=== PATIENT | male | born 1965 | race Caucasian/White ===

== ENCOUNTER 2019-09-23 09:48 | Emergency (ER) | payer OTHER, SELFPAY ==
[2019-09-23 10:05] VITALS: BP 126/68; PULSE 79; RESP 16; TEMP 36.3; O2SAT 97
--- NOTE | 2019-09-23 10:23 | ED.WOUNDLAC ---
HPI - Wound/Laceration General Chief Complaint: Wound/Laceration Stated Complaint: Laceration/left thumb History of Present Illness HPI narrative: This is a 54-year-old male comes in because he cut his finger on the blade of a lawnmower on her left thumb Related Data Home Medications Medication Instructions Recorded Confirmed cholecalciferol (vitamin D3) 50 2,000 unit PO DAILY 06/13/19 mcg (2,000 unit) tablet magnesium 250 mg tablet 250 mg PO BID tablet 06/13/19 Aspir-81 09/23/19 Vitamin C 09/23/19 gabapentin 09/23/19 Allergies Allergy/AdvReac Type Severity Reaction Status Date / Time Penicillins Allergy Unknown Unknown Verified 05/04/19 06:55 Sulfa (Sulfonamide Allergy Unknown Verified 02/27/19 13:22 Antibiotics) sulfanilamide Allergy Unknown Verified 10/06/10 16:09 Review of Systems Review of Systems: Narrative: CONSTITUTIONAL: Denies fever, chills, or sweats. EYES: Denies visual changes, redness, or discharge. ENT: Denies rhinorrhea, congestion, sore throat, or otalgia. CARDIOVASCULAR:Denies chest pain, palpitations, or edema. RESPIRATORY: Denies cough or dyspnea. GASTROINTESTINAL: Denies abdominal pain, nausea, vomiting, or diarrhea. GENITOURINARY: Denies dysuria or hematuria. SKIN:[Denies rash or itching. laceration of the left thumb MUSCULOSKELETAL:Denies back pain, joint pain, or myalgia. NEUROLOGIC: Denies headache, numbness, or weakness. PSYCHIATRIC:Denies anxiety or depression PMFSH Social History Social History Smoking status: Former smoker Smoking end date: 07/05/06 Alcohol intake: current Comments At time as signature, I have reviewed and agree with nursing past medical, social, surgical and family history. Please see nursing chart for further information. There is no relevant family history pertinent to the presenting complaint. Exam Narrative: Exam Narrative: GENERAL:Well-appearing, well-nourished, and in no acute distress. HEAD:Normocephalic, atraumatic. EYES: PERRLA and EOMI. ENT: Nares clear, no rhinorrhea or epistaxis. Mucous membranes moist. NECK: Supple. CHEST: Clear to auscultation. No respiratory distress. HEART: Regular rate and rhythm. No murmur heard. Normal peripheral pulses. ABDOMEN: Soft, nontender, nondistended, normal active bowel sounds. EXTREMITIES: Normal range of motion. No edema. Laceration of the left thumb SKIN: Warm, dry, no rash. NEURO: No focal deficits. Alert and oriented x3. Course Vital Signs Vital signs: Vital Signs Temperature 97.4 F L 09/23/19 10:05 Pulse Rate 79 09/23/19 10:05 Respiratory Rate 16 09/23/19 10:05 Blood Pressure 126/68 09/23/19 10:05 Pulse Oximetry 97 09/23/19 10:05 Temperature 97.4 F L 09/23/19 10:05 Pulse Rate 79 09/23/19 10:05 Respiratory Rate 16 09/23/19 10:05 Blood Pressure 126/68 09/23/19 10:05 Pulse Oximetry 97 09/23/19 10:05 Procedures Laceration Laceration 1: Date: 09/23/19 Time: 11:06 Site: hand Side (If applicable): left Size (cm): 6 Description: flap and irregular Depth: simple, single layer Local Anesthetic: lidocaine 1% Amount of anesthesia used (mL): 2 Pre-repair: wound explored and irrigated (250 ml) ====== Skin Level ====== Skin layer closed with: dermabond Size (cm): 5-0 (Ethion) Number of sutures: 7 Technique: simple, interrupted and running ====== Subcutaneous Layer ====== Size: 5-0 (7) ====== Muscle Layer ====== ====== Tendon Layer ====== Dressing: Patient tolerated well good circulation noted. Patient able to move thumb no further bleeding noted MDM - Wound/Laceration Differential Diagnosis Differential diagnosis: Likely laceration, abrasion and avulsion of skin Discharge Plan Discharge Clinical Impression: Laceration Laceration of thumb Qualifiers:
== END 2019-09-23 12:08 | disposition home or self-care (01) ==
PROVIDERS: Emergency Provider Nurse Practitioner Family; PCP Emergency Medicine
DX: S61.012A Laceration without foreign body of left thumb without damage to nail, initial encounter (principal); W28.XXXA Contact with powered lawn mower, initial encounter
CPT/HCPCS: 12002; 99213; G0463

== ENCOUNTER → 2020-10-08 16:21 | Outpatient (CLI) | payer OTHER, SELFPAY ==
--- NOTE | ~2020-10-08 | XR_ITS ---
EXAMINATION: XR foot LT 2V INDICATION: Left foot pain TECHNIQUE: Two views of the left foot are obtained. COMPARISON: None available FINDINGS: There is no fracture, dislocation, or subluxation. There is mild osteoarthritis at the firs t metatarsophalangeal joint and in multiple interphalangeal joints. The soft tissues are unremarkable . IMPRESSION: 1. No acute osseous abnormality. Reviewed, dictated and finalized at location A.
--- NOTE | ~2020-10-08 | XR_ITS ---
EXAMINATION: XR foot RT 2V INDICATION: Right foot pain TECHNIQUE: Two views of the right foot are obtained. COMPARISON: None available FINDINGS: There is no fracture, dislocation, or subluxation. There is mild osteoarthritis at the firs t metatarsophalangeal joint and in multiple interphalangeal joints. The soft tissues are unremarkable . IMPRESSION: 1. No acute osseous abnormality. Reviewed, dictated and finalized at location A.
== END ==
PROVIDERS: PCP Emergency Medicine; Visit Provider Emergency Medicine
DX: G57.53 Tarsal tunnel syndrome, bilateral lower limbs (principal); M79.671 Pain in right foot; M79.672 Pain in left foot
CPT/HCPCS: 73620

== ENCOUNTER 2020-12-03 15:37 | Outpatient (CLI) | payer OTHER, SELFPAY ==
--- NOTE | 2020-12-03 15:55 | ECG_ITS ---
Measurements Intervals [place] Rate: 86 P: 50 ND: 160 QRS: -4 QRSD: 93 T: 26 QT: 342 QTc: 410 Interpretive Statements SINUS RHYTHM BASELINE ARTIFACT- II, III, AVF NORMAL ECG Electronically Signed On 12-03-2020 19:16:56 CDT by Julio Fairchild D.O.
== END 2020-12-03 15:38 | disposition home or self-care (01) ==
LOC: ANHCARD 15:39
PROVIDERS: PCP Emergency Medicine; Visit Provider Podiatrist Foot & Ankle Surgery
DX: R03.0 Elevated blood-pressure reading, without diagnosis of hypertension (principal)
CPT/HCPCS: 93005

== ENCOUNTER 2021-12-25 08:03 | Emergency (ER) | payer OTHER, SELFPAY ==
[2021-12-25 08:10] VITALS: BP 147/85; PULSE 87; RESP 16; TEMP 37; O2SAT 98
--- NOTE | 2021-12-25 08:11 | ED.URI ---
HPI - URI/Sore Throat General Chief Complaint: Upper Respiratory Infection Stated Complaint: cough Time Seen by Provider: 12/25/21 08:15 Source: patient and RN notes reviewed Mode of arrival: ambulatory Limitations: no limitations History of Present Illness HPI Narrative: 56-year-old male presented for complaint of lingering cough for over 10 days with associated sinus congestion and nasal drainage. He denies shortness of breath, wheezing, nausea, vomiting, fevers or chills. He is having [id number] Delsym without. He is not vaccinated for COVID or flu. He denies sick contacts. MD elicited complaint: cough Related Data Home Medications Medication Instructions Recorded Confirmed magnesium 250 mg tablet 250 mg PO BID 06/13/19 Vitamin C 09/23/19 Allergies Allergy/AdvReac Type Severity Reaction Status Date / Time Penicillins Allergy Unknown Unknown Verified 12/10/21 15:23 Sulfa (Sulfonamide Allergy Unknown Unknown Verified 12/10/21 15:23 Antibiotics) sulfanilamide Allergy Unknown unknown Verified 12/10/21 15:23 Review of Systems Review of Systems: CONSTITUTIONAL: Denies malaise, chills, sweats, fever EYES: Denies visual changes, redness, or discharge ENT: Reports rhinorrhea, congestion CARDIOVASCULAR: Denies chest pain, palpitations, edema RESPIRATORY: Reports cough, post nasal drainage. Denies dyspnea GASTROINTESTINAL: Denies abdominal pain, nausea, vomiting, diarrhea SKIN: Denies rash or itching PMFSH Past Medical History Medical History Cellulitis Family History Family History Father Hypertension Malignant neoplasm of prostate Sibling Hypertension Carcinoma of colon Family history of elevated blood lipids Mother Carcinoma of colon Other Family history of coronary artery disease Social History Social History Smoking status: Former smoker Smoking end date: 07/05/06 Alcohol intake: current Exam Narrative: GENERAL: Well-appearing EYES: conjunctivae clear ENT: Mucous membranes moist. TM pearly sarah with normal light reflex bilaterally; no tragal tenderness. Oropharynx erythematous without lesions or exudate NECK: Supple. No lymphadenopathy CHEST: Clear to auscultation, breath sounds equal. No wheezing, rhonchi, rales, or stridor. HEART: Regular rate and rhythm. No murmur heard. SKIN: Warm, dry, no rash. Course Course Emergency Course: Patient is aware of diagnosis, understands and agrees to treatment plan. Anticipatory guidance given. Patient agrees to follow-up as directed and is aware of reasons to seek care at the emergency department. Portions of this record may have been created with voice recognition software Level of Care: Express Care Visit Vital Signs Vital signs: Vital Signs Temperature 98.6 F 12/25/21 08:10 Pulse Rate 87 12/25/21 08:10 Respiratory Rate 16 12/25/21 08:10 Blood Pressure 147/85 H 12/25/21 08:10 Pulse Oximetry 98 12/25/21 08:10 Oxygen Delivery Room Air 12/25/21 08:10 Temperature 98.6 F 12/25/21 08:10 Pulse Rate 87 12/25/21 08:10 Respiratory Rate 16 12/25/21 08:10 Blood Pressure 147/85 H 12/25/21 08:10 Pulse Oximetry 98 12/25/21 08:10 Oxygen Delivery Room Air 12/25/21 08:10 reviewed MDM - URI/Sore Throat MDM Narrative Medical decision making narrative: Advised supportive treatments for URI, given sx present for 10 days, he will have Rx abx. Pt is in stable condition and appropriate for outpt treatment. Differential Diagnosis Differential diagnosis: Likely upper respiratory infection, sinusitis and viral infection Discharge Plan Discharge Clinical Impression: Upper respiratory infection Patient Disposition: Home, Self-Care Condition: Stable Instructions: Antibiotic Form, Upper Respiratory Infection (ED)
== END 2021-12-25 08:27 | disposition home or self-care (01) ==
PROVIDERS: Emergency Provider Nurse Practitioner Family; PCP Emergency Medicine
DX: J06.9 Acute upper respiratory infection, unspecified (principal); Z87.891 Personal history of nicotine dependence
CPT/HCPCS: 99213; G0463

== ENCOUNTER 2022-10-03 08:06 | Outpatient (CLI) | payer BC, SELFPAY ==
--- NOTE | ~2022-10-03 | CT_ITS ---
EXAMINATION: CT sinus wo con DATE: 10/03/2022 08:45 INDICATION: Nasal obstruction. Frontal headache. TECHNIQUE: Computed tomography (CT) of the facial bones and maxillofacial region was performed withou t intravenous contrast. Automated exposure control and iterative reconstruction technique were employ ed. The dose-length product was 308.46 mGy-cm. COMPARISON: None. FINDINGS: There is mild mucosal thickening in the bilateral frontal, ethmoid, sphenoid, and maxillary sinuses. There is leftward deviation of the nasal septum. There is alexander bullosa involving right mi ddle turbinate. There are bilateral Cynthia cells. The osteomeatal units are patent. IMPRESSION: 1. Mild mucosal thickening in the paranasal sinuses. 2. Leftward deviation of the nasal septum. 3. Alexander bullosa involving the right middle turbinate. 4. Bilateral Cynthia cells. Reviewed, dictated and finalized at location A.
== END 2022-10-03 08:07 | disposition home or self-care (01) ==
PROVIDERS: PCP Emergency Medicine; Visit Provider Otolaryngology
DX: J01.01 Acute recurrent maxillary sinusitis (principal); J34.2 Deviated nasal septum; J34.3 Hypertrophy of nasal turbinates
CPT/HCPCS: 70486

== ENCOUNTER 2022-11-12 19:08 | Emergency (ER) | payer BC, SELFPAY ==
[2022-11-12 19:15] VITALS: BP 159/75; PULSE 75; RESP 18; TEMP 37.6; O2SAT 99
--- NOTE | 2022-11-12 19:36 | ED.EYEPROB ---
HPI - Eye Problem General Chief complaint: Eye Problems Stated complaint: something in eye Time Seen by Provider: 11/12/22 19:24 Source: patient, RN notes reviewed and old records reviewed Mode of arrival: ambulatory Limitations: no limitations History of Present Illness HPI Narrative: 57-year-old male presents to the [facility] with complaints of left eye pain since 01/01 this morning. States he felt like something flew into his eye. Has had pain, tearing is since. Denies any change in vision or blurry vision. Denies any loss of vision. No hyphema. Onset (ago): hour(s) (13) Related Data Patient tetanus UTD: No Allergies Allergy/AdvReac Type Severity Reaction Status Date / Time Penicillins Allergy Intermediate Rash Verified 11/12/22 19:20 Sulfa (Sulfonamide Allergy Intermediate Rash Verified 11/12/22 19:20 Antibiotics) sulfanilamide Allergy Intermediate Rash Verified 11/12/22 19:20 Review of Systems Review of Systems: All systems reviewed & are unremarkable except as noted in HPI and below Constitutional: Constitutional: Reports no additional constitutional complaints Eyes: Eyes: Reports as per HPI, Denies change in vision, Reports irritation and Reports eye pain ENT: Reports system reviewed and no additional complaints, except as documented Cardiovascular: Cardiovascular: Reports no additional cardiovascular complaints, Denies chest pain and Denies dyspnea Respiratory: Respiratory: Reports no additional respiratory complaints, Denies chest congestion, Denies cough and Denies dyspnea Gastrointestinal: Gastrointestinal: Reports no additional gastrointestinal complaints, Denies abdominal pain, Denies nausea and Denies vomiting Musculoskeletal: Musculoskeletal: Reports no additional musculoskeletal complaints Integumentary/Breasts: Skin/Breast: Reports system reviewed and no additional complaints, except as docu Neurologic: Reports system reviewed and no additional complaints, except as documented Psychiatric: Psychiatric: Reports no additional psychiatric complaints Allergic/Immunologic: Allergic/Immunologic: Reports no additional allergic/immunologic complaints PMFSH Past Medical History Medical History Cellulitis Family History Family History Father Hypertension Malignant neoplasm of prostate Sibling Hypertension Carcinoma of colon Family history of elevated blood lipids Mother Carcinoma of colon Other Family history of coronary artery disease Social History Social History Smoking status: Former smoker Smoking end date: 07/05/06 Alcohol intake: current Substance use: never Lack of Transportation: No Lack of Food: Never True Current Housing: I Have Housing Concerned About Future Housing: No Difficulty Paying Gas/Electric Bills: No Difficulty Paying for Meds: No Currently Unemployed: No Education: Trade/Vocational Certificate Difficulty w/ Childcare or Family Care: No Comments At the time of my signature, I reviewed and agree with the nursing past medical, surgical, social, and family history. There is no relevant family history pertinent to the patient complaint. Exam Const: General: cooperative, healthy appearing, comfortable, no acute distress, well developed, alert and well nourished Nutritional Appearance: well nourished Orientation/consciousness: patient oriented x3 Limitations: no limitations HENMT: Head: normal to inspection Ears: hearing grossly normal bilaterally and external ears normal Face/Nose/Sinus: Normal external nose present, Normal nares present, Normal nasal mucous membranes and turbinates present and normal facial exam Face and sinus: normal facial exam Mouth: Yes Normal oral and palatal mucosa present, Yes lip normal and Yes moist mucous membranes Throat: posterior orophary
[2022-11-12] MEDS: TETANUS,DIPHTHERIA,AC PERTUSSIS ADULT (0.5 ML) BOOSTRIX IM (19:41)
== END 2022-11-12 19:51 | disposition home or self-care (01) ==
PROVIDERS: Emergency Provider Nurse Practitioner
DX: S05.02XA Injury of conjunctiva and corneal abrasion without foreign body, left eye, initial encounter (principal); X58.XXXA Exposure to other specified factors, initial encounter; Z23 Encounter for immunization; Z87.891 Personal history of nicotine dependence
CPT/HCPCS: 90471; 90715; 99213; A9270; G0463

== ENCOUNTER 2022-12-22 09:01 | Outpatient (CLI) | payer BC, SELFPAY ==
--- NOTE | 2022-12-22 09:58 | EST_ITS ---
Patient Info Name: Real Milligan Age: 57 years : 1965 Gender: Male Ht: 67 in Wt: 160 lbs BSA: 1.86 m2 HR: 66 bpm BP: 129 / 80 mmHg Heart Rhythm: Sinus Rhythm Exam Date: 12/22/2022 10:22 AM Exam Location: [facility] Stress Patient Status: Outpatient Admit Date: 12/22/2022 Staff Ordering Physician: Julio Fairchild DO Attending Provider: Julio Fairchild DO Exercise Technologist: Marcia Ling CT Exercise Physician: Julio Fairchild DO Exam Type: CA stress test treadmill Study Info Indications I47.9 - Paroxysmal tachycardia, unspecified A treadmill exercise stress test was performed. Summary 1. 1. Negative Doroteo exercise stress test for ischemic ST changes by ECG criteria. 2. 2. Good functional capacity, achieving 10 METs of workload. 3. 3. Appropriate HR response to exercise. 4. 4. Appropriate HR recovery at 1 minute post exercise. 5. 5. No imaging with stress testing. 6. 6. Patient informed of the above results. Protocol: Dor[place]o Stress ECG Details Stage: REST Duration (min): 0 min : 18 sec Speed (mph): 0.0 Grade (%): 0 HR (bpm): 68 SBP (mmHg): --- DBP (mmHg): --- METS: --- Stage: REST Duration (min): 1 min : 30 sec Speed (mph): 0.0 Grade (%): 0 HR (bpm): 67 SBP (mmHg): --- DBP (mmHg): --- METS: --- Stage: REST Duration (min): 6 min : 59 sec Speed (mph): 0.0 Grade (%): 0 HR (bpm): 70 SBP (mmHg): --- DBP (mmHg): --- METS: --- Stage: STAGE 1 Duration (min): 1 min : 0 sec Speed (mph): 1.7 Grade (%): 10 HR (bpm): 87 SBP (mmHg): --- DBP (mmHg): --- METS: --- Stage: STAGE 1 Duration (min): 2 min : 0 sec Speed (mph): 1.7 Grade (%): 10 HR (bpm): 93 SBP (mmHg): --- DBP (mmHg): --- METS: --- Stage: STAGE 1 Duration (min): 3 min : 0 sec Speed (mph): 1.7 Grade (%): 10 HR (bpm): 94 SBP (mmHg): 136 DBP (mmHg): 70 METS: --- Stage: STAGE 2 Duration (min): 1 min : 0 sec Speed (mph): 2.5 Grade (%): 12 HR (bpm): 102 SBP (mmHg): 136 DBP (mmHg): 70 METS: --- Stage: STAGE 2 Duration (min): 2 min : 0 sec Speed (mph): 2.5 Grade (%): 12 HR (bpm): 109 SBP (mmHg): 134 DBP (mmHg): 70 METS: --- Stage: STAGE 2 Duration (min): 3 min : 0 sec Speed (mph): 2.5 Grade (%): 12 HR (bpm): 111 SBP (mmHg): 134 DBP (mmHg): 70 METS: --- Stage: STAGE 3 Duration (min): 1 min : 0 sec Speed (mph): 3.4 Grade (%): 14 HR (bpm): 120 SBP (mmHg): 149 DBP (mmHg): 71 METS: --- Stage: STAGE 3 Duration (min): 2 min : 0 sec Speed (mph): 3.4 Grade (%): 14 HR (bpm): 124 SBP (mmHg): 149 DBP (mmHg): 71 METS: --- Stage: STAGE 3 Duration (min): 3 min : 0 sec Speed (mph): 3.4 Grade (%): 14 HR (bpm): 131 SBP (mmHg): 165 DBP (mmHg): 75 METS: --- Stage: STAGE 4 Duration (min): 0 min : 29 sec Speed (mph): 4.2 Grade (%): 16 HR (bpm): 138 SBP (mmHg): 165 DBP (mmHg): 75
== END 2022-12-22 09:02 | disposition home or self-care (01) ==
LOC: ANHCARD 09:02
PROVIDERS: PCP Emergency Medicine; Visit Provider Internal Medicine Cardiovascular Disease
DX: I48.0 Paroxysmal atrial fibrillation (principal)
CPT/HCPCS: 93017

== ENCOUNTER 2023-01-08 01:51 | Day surgery (SDC) | payer BC, SELFPAY ==
[2022-12-29 15:30] VITALS: BMI 25.1
--- NOTE | 2022-12-29 15:31 | SUR.PREOP ---
Report to the Outpatient Waiting Room, entrance under the green pavilion located off [facility], at time _1030 on date __01/08/23 . Planned Procedure Time: __1230 . Time changes happen often and if your time is changed the preop area will call you the afternoon before. - You and your visitor will be asked to self-screen and do not enter if you have any COVID symptoms. - A mask is optional within the hospital at this time. Patients may have clear liquids (water, carbonated beverages, clear teas, apple juice) until 3 hours prior to surgery with a maximum of 20 ounces. - No food from midnight until time of surgery - Infants may have breast milk until 4 hours before surgery, formula 6 hours prior to surgery. - Children will be allowed to drink immediately following surgery. If applicable, please bring a bottle or sippy cup to assist with drinking. Juice, water, soda, and popsicles are readily available. For infants on formula, please bring formula the day of surgery. Pacifiers are allowed. Take the following medications with a SIP of water the morning of surgery: DO NOT STOP ANY OF YOUR OTHER PRESCRIPTION MEDICATIONS PRIOR TO SURGERY ?EXCEPT THE FOLLOWING Medications to discontinue per physician MULTIVITAMIN PT TO CALL DR WALKER REGARDING __STOPPING ASPIRIN Date to take last dose___01/05/23 Please no make-up, nail lithuanian, hairspray, perfume, deodorant, or body powder the day of surgery. No jewelry (including any body piercings) or valuables the day of surgery, leave them at home. Please take a shower or bath the night before, or the morning of, surgery with an antibacterial soap. Wear comfortable, loose fitting clothing. Children are encouraged to wear pajamas. - Jewelry must be removed prior to entering the operating room. Rings and piercings that are not removed may be cut off. - The hospital will not accept responsibility for valuables. - Please leave all valuables, including medications, at home the day of surgery. If you are going home after surgery, a licensed otr refrigerated cdl truck driver must drive you home. - NO public transportation without another adult if you receive anesthesia. - We recommend that an adult stay with you for 24 hours following discharge. - We also recommend that you do not drive, make important decision, drink alcoholic beverages, or take any drugs that were not prescribed by your health care provider for at least 24 hours after your discharge time. For Pediatric surgeries, we recommend two adults accompany the child home. Follow any additional instructions given to you from your surgeon. If you or anyone in your household have experienced Covid symptoms in the past week, please notify your surgeon or the nurse liaison at the phone number below for possible testing. Telephone instructions given to _PAUL BOX and asked if any additional questions and then verbalized understanding. Patient advised to call surgeon office or pre surgery nurse liaison [phone] if any additional questions.
--- NOTE | 2023-01-07 12:48 | WPDANESEPPF ---
Anes - Initial Pre Proc Eval Procedure: Operation Date: 01/08/23 12:30 Proposed Procedures p Image Guided Bilateral Inferior Turbinectomy with Outfracture, Bilateral Total Ethmoidectomy, Bilateral Sphenoidotomy without Tissue Removal, Bilateral Maxillary Antrostomy without Tissue Removal, Bilateral Resection of Veda Bullosa - Yaya Reese MD s Endoscopic Septoplasty - Yaya Reese MD Date/Time: 01/07/23 12:48 Surgeon: Yaya Reese MD Pre Op Diagnosis: Chr Sinusitis Patient Data Age: 57 Gender: M Height: 1.7 m Weight: 72.72 kg Allergies Allergy/AdvReac Type Severity Reaction Status Date / Time Penicillins Allergy Intermediate Rash Verified 01/08/23 10:42 Sulfa (Sulfonamide Allergy Intermediate Rash Verified 01/08/23 10:42 Antibiotics) sulfanilamide Allergy Intermediate Rash Verified 01/08/23 10:42 Home Medications Medication Instructions Recorded Confirmed Type fenofibrate nanocrystallized 48 mg See Rx Instructions .Route 08/04/22 01/08/23 Rx tablet .COMPLEX #90 tabs fluticasone propionate 50 2 spray intranasal DAILY #18 mL 09/01/22 01/08/23 Rx mcg/actuation nasal spray,suspension (Flonase Allergy Relief) simvastatin 10 mg tablet See Rx Instructions .Route 12/01/22 01/08/23 Rx .COMPLEX #90 tabs testosterone 1 % (50 mg/5 gram) 1 packet transdermal DAILY #150 12/22/22 01/08/23 Rx transdermal gel packet (AndroGel) grams multivitamin 1 cap PO DAILY 12/29/22 01/08/23 History ECG: Date of Service: 12/03/20 Procedure(s): CA 12 lead EKG Accession Number(s): [id number] cc: ~ ? Measurements Intervals? [place]? Rate: ? 86 ? P:? 50 IA: ? 160? QRS:? -4 QRSD: ? 93 ? T:? 26 QT: ? 342? QTc:? 410? Interpretive Statements SINUS RHYTHM BASELINE ARTIFACT- II, III, AVF NORMAL ECG Electronically Signed On 12-03-2020 19:16:56 CDT by Julio Fairchild D.O. Patient hx anesthesia problems: none Family hx anesthesia problems: none Results Review: All pre-operative results and documents have been reviewed as part of the pre-operative evaluation. [facility] Past Medical History Medical History (Updated 01/07/23 @ 17:49 by Yyaa Reese MD) Cellulitis HLD (hyperlipidemia) Nasal turbinate hypertrophy JOSE L (obstructive sleep apnea) PAF (paroxysmal atrial fibrillation) Family History Family History Father Hypertension Malignant neoplasm of prostate Sibling Hypertension Carcinoma of colon Family history of elevated blood lipids Mother Carcinoma of colon Other Family history of coronary artery disease Social History Social History Smoking status: Former smoker Smoking end date: 08/06/05 Additional smoking assessment comments: 1 pack a week x12 years Alcohol intake: current Drinks per week: 3 Alcohol use details: socially Substance use: never Lack of Transportation: No Lack of Food: Never True Current Housing: I Have Housing Concerned About Future Housing: No Difficulty Paying Gas/Electric Bills: No Difficulty Paying for Meds: No Currently Unemployed: No Education: Trade/Vocational Certificate Difficulty w/ Childcare or Family Care: No Living arrangements: with family Spiritual care concerns: No Anes - Eval Final PreProcedure Day of Procedure 01/07/23 12:48 Patient weight: normal Heart: regular rate and rhythm Lungs: clear to auscultation and normal air movement Airway: Mallampati scale class II Neurological: alert and oriented Last oral intake: >/= 8 hours ASA classification: III Emergent: no Anesthetic plan: proceed Anesthesia type and monitori
--- NOTE | 2023-01-07 17:48 | PM.IMHP ---
H&P: HPI History of Present Illness Date/Time: 01/07/23 17:48 Chief Complaint: Alexander bullosa nasal obstruction nasal congestion septal deviation turbinate hypertrophy chronic sinusitis Narrative: planned procedure Review of Systems Review of Systems: All systems reviewed & are unremarkable except as noted in HPI and below PMFSH Past Medical History Medical History (Updated 01/07/23 @ 17:49 by Yaya Reese MD) Cellulitis HLD (hyperlipidemia) Nasal turbinate hypertrophy JOSE L (obstructive sleep apnea) PAF (paroxysmal atrial fibrillation) Family History Family History Father Hypertension Malignant neoplasm of prostate Sibling Hypertension Carcinoma of colon Family history of elevated blood lipids Mother Carcinoma of colon Other Family history of coronary artery disease Social History Social History Smoking status: Former smoker Smoking end date: 08/06/05 Additional smoking assessment comments: 1 pack a week x12 years Alcohol intake: current Drinks per week: 3 Alcohol use details: socially Substance use: never Lack of Transportation: No Lack of Food: Never True Current Housing: I Have Housing Concerned About Future Housing: No Difficulty Paying Gas/Electric Bills: No Difficulty Paying for Meds: No Currently Unemployed: No Education: Trade/Vocational Certificate Difficulty w/ Childcare or Family Care: No Living arrangements: with family Spiritual care concerns: No Meds Home Medications and Allergies Home Medications Medication Instructions Recorded Confirmed Type fenofibrate nanocrystallized 48 mg See Rx Instructions .Route 08/04/22 12/31/22 Rx tablet .COMPLEX #90 tabs fluticasone propionate 50 2 spray intranasal DAILY #18 mL 09/01/22 12/31/22 Rx mcg/actuation nasal spray,suspension (Flonase Allergy Relief) simvastatin 10 mg tablet See Rx Instructions .Route 12/01/22 12/31/22 Rx .COMPLEX #90 tabs testosterone 1 % (50 mg/5 gram) 1 packet transdermal DAILY #150 12/22/22 12/31/22 Rx transdermal gel packet (AndroGel) grams multivitamin 1 cap PO DAILY 12/29/22 12/31/22 History Allergies Allergy/AdvReac Type Severity Reaction Status Date / Time Penicillins Allergy Intermediate Rash Verified 12/31/22 15:40 Sulfa (Sulfonamide Allergy Intermediate Rash Verified 12/31/22 15:40 Antibiotics) sulfanilamide Allergy Intermediate Rash Verified 12/31/22 15:40 Exam Narrative: septal deviation turbinate hypertrophy Assessment and Plan Assessment and plan (1) Nasal turbinate hypertrophy: Code(s): J34.3 - Hypertrophy of nasal turbinates Status: Acute Assessment and Plan: plan OR endoscopic resection alexander bullosa bilaterally endoscopic assisted septoplasty inferior turbinate reduction bilaterally with outfracture bilateral image guided endoscopic maxillary antrostomies total ethmoidectomies sphenoidotomies. Risks were discussed including bleeding infection damage to surrounding structures need for further procedures failure to resolve symptoms septal perforation re hypertrophy of turbinates. CSF leak brain brain damage blindness change in vision need for time off work time off school and her risk of mycotic use persistent debridements postoperative infection need for multiple postoperative visits. Damage to any structure above the clavicle by myself damage to any structure during the induction and maintenance of anesthesia. (2) Nasal obstruction: Code(s): J34.89 - Other specified disorders of nose and nasal sinuses Status: Acute (3) Nasal turbinate hypertrophy: Code(s): J34.3 - Hypertrophy of nasal turbinates Status: Acute (4) Nasal septal deviation: Code(s): J34.2 - Deviated nasal septum Status: Acute (5) Alexander bullosa: Code(s): J34.8
[2023-01-08] VITALS (8 sets, daily range): BP systolic 133–183; BP diastolic 72–97; PULSE 80–97; RESP 12–18; TEMP 36.4; O2SAT 91–97
--- NOTE | 2023-01-08 07:36 | WPDHPUPDATE1 ---
History and Physical Update Update Date/Time: 01/08/23 07:36 History and Physical has been reviewed, including an updated exam of the patient. There are NO changes in the patient's condition. Risks, benefits, and alternatives have been discussed and questions answered. Patient agrees to proceed with procedure.
--- NOTE | 2023-01-08 10:31 | SUR.PREOP ---
pt informed delay in procedure
[2023-01-08] MEDS: ACETAMINOPHEN 500 MG TABLET 1000 MG PO (10:49)
[2023-01-08] MEDS: LACTATED RINGERS 1,000 ML 30 ML IV CONT ×2 (11:12→15:44)
[2023-01-08] MEDS: ceFAZolin 2 GM/D5W 50 ML 2 GM/50 ML BAG IVPB (12:58)
[2023-01-08] MEDS: OXYMETAZOLINE HCL 0.05% NAS 15 ML BTL (*BKC) 1 SPRAY NASAL (13:37)
[2023-01-08] MEDS: MUPIROCIN 2% OINT 22 GM TUBE 1 APPLIC EACH NARE (15:18)
[2023-01-08] MEDS: LIDO 1%/EPINEPHRINE 1:100,000 50 ML VIAL 20 ML INFILTRATE (15:19)
[2023-01-08] MEDS: fentaNYL CITRATE INJ (*CRX) 100 MCG/2 ML VIAL 25 MCG IV PUSH ×2 (15:54→16:01)
--- NOTE | 2023-01-08 16:29 | W.PM.PROC2 ---
Procedure Note - Detailed Date of Procedure 01/08/23 Pre-op Diagnosis Chr SinusitisFull deviation, turbinate hypertrophy, alexander bullosa Post-op Diagnosis Same Procedure Performed left middle turbinectomy right resection alexander bullosa endoscopic assisted septoplasty inferior turbinate reduction with outfracture bilaterally bilateral image guided endoscopic maxillary antrostomies total ethmoidectomies sphenoidotomies Surgeon Yaya Reese MD Anesthesia General Indications see above Findings minimally diseased mucosa in all the aforementioned sinuses left alexander bullosa completely full of purulence turbinate looked nonviable decision made to perform middle turbinectomy right large alexander resected nicely left septal deviation corrected no perforation excellent closure turbinates well reduced much more patent airway Description of Procedure patient identified consent verified in the preoperative holding area. Patient brought to the operating room. Time-out performed. General anesthesia induced endotracheal tube secured. Patient prepped reposition 2nd time-out performed after confirmation of procedure. Image guidance initiated confirmed. Afrin-soaked pledgets placed in the nasal passages for 5 minutes then removed. 11 cc 1% lidocaine with 1 100,000 parts epinephrine injected the bilateral nasal septum anterior portion of the inferior turbinates and right and left alexander bullosa. Harley incision made left-sided 15 blade left nasal septal flap elevated with 7 Ethiopian suction. Osteotome utilized to cross to the septum and outline the removed portion. Right-sided nasal septal flap elevated with 7 Ethiopian suction. Deviated septum move combination Samir forceps Renan Green forceps and osteotome. Harley incision closed with 3 interrupted 5 0 fast gut sutures. Turbinates reduced in the submucosal plane with microdebrider with turbinate blade. They were then outfractured Throckmorton elevator. Maxillary antrostomies performed bilaterally with image guidance double ball tip probe backbiter straight through cup microdebrider image guided microdebrider. Ethmoidectomies performed with Kerrison image guidance microdebrider sphenoidotomies performed with image guidance sphenoid punch and Kerrison. Blood loss was minimal throughout the procedure. Left alexander resected turbinate looked nonviable completely full of purulence turbinectomy performed with straight through cut stump cauterized with Bovie suction electrocautery setting of 15. Right alexander resected with sickle blade a straight through cut microdebrider. Blood loss 0-5 cc. Patient tolerated the procedure well the end of procedure the bilateral nasal passages were copiously irrigated with warm sterile saline. Nail no pack was placed bilaterally Vela splints placed sutured anteriorly with 3-0 mattressed nylon suture. I performed all dictated portions of the procedure. Total blood loss about 75 cc. No complications. Patient was taken to PACU. Estimated Blood Loss 75 Drains No Packing Yes ( Nova pack) Pathology None sent Complications No immediate complications Condition Stable Disposition PACU [facility] Billing Surgery - Charge Forward: Surgery Billing
[2023-01-08] MEDS: oxyCODONE HCL (*CRX) 5 MG TAB IR PO (16:49)
== END 2023-01-08 17:21 | disposition home or self-care (01) ==
PROVIDERS: PCP Emergency Medicine; Visit Provider Otolaryngology
PROC: (CPT 31256; principal; 2023-01-08 12:30)
PROC: (CPT 30520; 2023-01-08 12:30)
DX: J32.9 Chronic sinusitis, unspecified (principal); J34.2 Deviated nasal septum; J34.3 Hypertrophy of nasal turbinates; J34.89 Other specified disorders of nose and nasal sinuses; G47.33 Obstructive sleep apnea (adult) (pediatric); E78.5 Hyperlipidemia, unspecified; I48.0 Paroxysmal atrial fibrillation; Z87.891 Personal history of nicotine dependence
CPT/HCPCS: 31256; 31257; 61782; 30520; 30140; 31240; A9270; J0330; J0690; J1100; J2405; J2704; J3010; J7120

== ENCOUNTER 2023-07-07 15:52 | Outpatient (CLI) | payer BC, SELFPAY ==
--- NOTE | ~2023-07-07 | XR_ITS ---
EXAMINATION: XR hand RT 2V DATE: 07/07/2023 16:23 INDICATION: Right hand pain. TECHNIQUE: 2 views of right hand were obtained. COMPARISON: None. FINDINGS: Bone alignment is normal. No fracture. There is moderate osteoarthritis of first carpometac arpal joint and second metacarpophalangeal joint and mild osteoarthritis of third metacarpophalangeal joint and many of the interphalangeal joints. IMPRESSION: 1. Polyarticular osteoarthritis. Reviewed, dictated and finalized at location E. ARD/[employer]
--- NOTE | ~2023-07-07 | XR_ITS ---
EXAMINATION: XR lumbar spine 2-3V DATE: 07/07/2023 16:22 INDICATION: Low back pain. TECHNIQUE: 3 views of lumbar spine were obtained. COMPARISON: None. FINDINGS: Bone alignment is normal. Vertebral body heights and intervertebral disc heights are normal . There are endplate osteophytes at all levels. There is multilevel facet joint osteoarthritis, sever e in lower lumbar spine. IMPRESSION: 1. Mild lumbar spondylosis. Reviewed, dictated and finalized at location E. GER HEMATOLOGY IMPRESSION: 1. Mild lumbar spondylosis.
== END 2023-07-07 15:53 | disposition home or self-care (01) ==
LOC: ANHIMG 15:55
PROVIDERS: PCP Emergency Medicine; Visit Provider Emergency Medicine
DX: M43.06 Spondylolysis, lumbar region (principal); M19.041 Primary osteoarthritis, right hand
CPT/HCPCS: 72100; 73120

== ENCOUNTER 2023-11-23 15:38 | Outpatient (CLI) | payer BC, SELFPAY ==
--- NOTE | ~2023-11-23 | MR_ITS ---
EXAMINATION: MR thoracic spine wo con DATE: 11/23/2023 17:22 INDICATION: Vertebrogenic thoracic and low back pain. TECHNIQUE: Magnetic resonance imaging (MRI) of the thoracic spine was performed without intravenous c ontrast. Sagittal localizer T1-weighted FSE of the cervicothoracic spine was obtained. Thoracic spine sequences included sagittal T2-weighted FSE, sagittal T1-weighted SE, Sagittal T2-weighted FS FSE, a nd axial T2-weighted FSE. COMPARISON: None FINDINGS: Thoracic spine: Sagittal alignment is normal.12 degree upper cervical levoscoliosis and a discrete compensatory mid t o lower thoracic dextrocurvature. Vertebral body heights are normal. Normal marrow signal.Moderate di sc height loss at T5-T6 and mild disc height loss at the remaining levels between T1-T2 and T9-T10 mo re prominent along the concave side of the respective upper and midthoracic curvatures. The disc does not extend beyond the endplate margins with no central canal stenosis.Mild lower cervical spondylosi s with small disc bulges at C5-C6 and C6-C7. There is multilevel mild to moderate facet osteoarthriti s throughout the thoracic spine which results in mild neural from stenosis at a few levels on the lef t and right sides of the mid to lower thoracic spine. There is dilated T2 hyperintense cystic space c entrally within the thoracic spinal cord extends approximately 10 cm craniocaudally from the level of T7-T11 T12 and which measures up to maximal of 2.1 x 1.8 mm in maximal diameter at the level of T10- T11. On the sagittal images there appears be an additional similar but smaller diameter central fluid collection in the cervicothoracic cord extending from C7 to T2. There is otherwise normal spinal cor d signal. The conus terminates at L1. Lumbar spine: Alignment is normal. Vertebral body heights are normal. Minimal disc height loss at L3-L4. Remaining discs are normal. Paravertebral soft tissues are unremarkable. The following disc levels are specific ally discussed: T12-L1: The disc does not extend beyond the endplate margin. There is mild bilateral facet joint oste oarthritis. There is no neural foraminal stenosis. There is no central canal stenosis. L1-L2: The disc does not extend beyond the endplate margin. There is mild left and moderate right fac et joint osteoarthritis. There is no neural foraminal stenosis. There is no central canal stenosis. L2-L3: Minimal left foraminal zone disc protrusion. There is moderate right and mild to moderate left facet joint osteoarthritis. There is minimal bilateral neural foraminal stenosis. There is no centra l canal stenosis. L3-L4: Mild left paracentral disc protrusion. There is moderate right and mild to moderate left facet joint osteoarthritis. There is mild bilateral neural foraminal stenosis. There is negligible central canal stenosis. L4-L5: Mild bilateral foraminal zone disc protrusions. There is mild to moderate left and moderate to severe right facet joint osteoarthritis. There is mild bilateral neural foraminal stenosis. There is no central canal stenosis. L5-S1: Mild left foraminal zone disc protrusion. There is moderate to severe bilateral facet joint os teoarthritis. There is no neural foraminal stenosis. There is no central canal stenosis. IMPRESSION: 1. Mild to moderate thoracic and mild lumbar spondylosis. 2. 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 Consider pre and postcontrast MRI of th e entire spine to assess for otherwise occult neoplasm. Reviewed, dictated and finalized at zaria Banks
== END 2023-11-23 15:39 | disposition home or self-care (01) ==
PROVIDERS: PCP Emergency Medicine; Visit Provider Nurse Practitioner Family
DX: M43.04 Spondylolysis, thoracic region (principal); M43.06 Spondylolysis, lumbar region; G57.73 Causalgia of bilateral lower limbs
CPT/HCPCS: 72146; 72148

== ENCOUNTER 2023-12-19 08:29 | Outpatient (CLI) | payer BC, SELFPAY ==
--- NOTE | ~2023-12-19 | MR_ITS ---
Procedure: MR lumbar spine wo/w con Ordering provider: Belinda Couch, BREAST BUFFER History:58 years Male with . SYRINGEOMYELLA . Comparison: None. Technique: MRI lumbar spine with and without contrast. Contrast was given. FINDINGS: CONUS MEDULLARIS: Normal in position and appearance with no abnormal enhancement. Syringomyelia seen opposite T10 and T11. The conus ends at the level of T12-L1. LUMBAR VERTEBRAL BODIES: Normal height a nd alignment. no compression fracture. Normal marrow signal. No abnormal marrow enhancement. DISK SPACES: Normal. T12-L1: No stenosis. L1-L2: No stenosis. L2-L3: No stenosis. Small cystic areas seen in the right intervertebral foramen at the level of L2-L 3. L3-L4: No stenosis. L4-L5: No stenosis. L5-S1: No stenosis. PARASPINOUS SOFT TISSUES: Normal. No abnormal paraspinous enhancement. IMPRESSION: 1. Small right foraminal perineural cyst at the level of L2-L3. 2. Syringomyelia at the level of T10 and T11. Reviewed, dictated and finalized at location A.
--- NOTE | ~2023-12-19 | MR_ITS ---
Procedure: MR thoracic spine wo/w con Ordering provider: Belinda Couch, WELT STITCH CLEANER History: . SYRINGEOMYELLA . Comparison: November 23, 2023 Technique: MRI thoracic spine with and without contrast. FINDINGS: SPINAL CORD: Syringomyelia is seen in the thoracic cord extending into the mid and lower thoracic are a from T5 to T11 maximum changes seen in T10 and T11. No abnormal enhancement of the spinal cord or s antony canal. VERTEBRAL BODIES: Normal height and alignment. No compression fracture. Normal marrow signal. No abno rmal marrow enhancement. Hemangioma is seen in T9. DISK SPACES: Normal. STENOSIS: None. PARASPINOUS SOFT TISSUES: Normal. No abnormal enhancement of the paraspinous soft tissues. Nonenhancing lesion seen. IMPRESSION: Syringomyelia involving the mid and lower thoracic area. No compression fracture or significant stenosis of the thoracic spine. No abnormal enhancement. No significant change from previous examination Reviewed, dictated and finalized at location A. IMPRESSION: Syringomyelia involving the mid and lower thoracic area. No compression fracture or significant stenosis of the thoracic spine. No abno rmal enhancement. No significant change from previous examination
--- NOTE | ~2023-12-19 | MR_ITS ---
MR cervical spine wo/w con Ordering provider: Belinda Couch, FUSING MACHINE TENDER History: . SYRINGEOMYELLA . Comparison: None. Technique: MRI cervical spine with and without contrast enhancement. Contrast was given. FINDINGS: CERVICAL SPINAL CORD/CRANIAL CERVICAL JUNCTION: Normal in signal and caliber. No abnormal enhancement . No evidence of syringomyelia noted. Small T2 hyperintense signal area seen opposite C6-C7 which may b e artifactual are focal myelomalacia. CERVICAL VERTEBRAL BODIES: Normal height and alignment. Normal marrow signal. No abnormal marrow enha ncement. DISK SPACES: Well maintained. C2-C3: No stenosis. Diffuse Disc bulge. C3-C4: No stenosis. Central disc protrusion. C4-C5: No stenosis. Diffuse disc bulge. C5-C6: No stenosis. Diffuse disc bulge. Slight narrowing of the left foramen. C6-C7: No stenosis. C7-T1: No stenosis. VISUALIZED PARASPINOUS SOFT TISSUES: Normal. No abnormal enhancement. IMPRESSION: 1. Multilevel degenerative disc bulge with central protrusion at the level of C3-C4. Slight narrowin g of the left intervertebral foramen at the level of C5-C6. 2. No syringomyelia. Small focus of increased intensity on T2-weighted images seen in the sagittal i mages which may be artifactual or focal myelomalacia. 3. No enhancing lesions seen in the cord or the spine. Reviewed, dictated and finalized at location A. IMPRESSION: 1. Multilevel degenerative disc bulge with central protrusion at the level of C3-C4. Slight narrowing of the left intervertebral foramen at the level of C5-C 6. 2. No syringomyelia. Small focus of increased intensity on T2-weighted images seen in the sagittal images which may be artifactual or focal myelomalacia. 3. No enhancing lesions seen in the cord or the spine.
== END 2023-12-19 08:30 | disposition home or self-care (01) ==
LOC: ANHIMG 08:29
PROVIDERS: PCP Emergency Medicine; Visit Provider Nurse Practitioner Family
DX: G95.0 Syringomyelia and syringobulbia (principal); G96.191 Perineural cyst; M50.21 Other cervical disc displacement, high cervical region
CPT/HCPCS: 72156; 72157; 72158; A9577

== ENCOUNTER 2024-05-03 07:58 | Outpatient (CLI) | payer BC, SELFPAY ==
--- NOTE | 2024-05-24 11:42 | WPDSLEEPSTUD ---
Sleep Study Date of Study: 05/03/24 Ordering Provider: Mike Cox APRN Interpreting Physician: Malinda Umana MD Sleep Study Type: Polysomnogram Height: 1.7 m Weight: 74.843 kg Body Mass Index: 25.8 Neck Circumference (inches): 15 [place]: 15 Reason for Sleep Study Hypersomnolence, non restorative sleep * 10/15/2022 HSAT using [employer], AHI was 4.09, desaturation 86%, oxygen desaturation index 7.7, high heart rate variability suggestive of obstructive sleep apnea Sleep History Real Milligan is a 58-year-old man with excessive daytime sleepiness and poor quality sleep. His medical comorbidities include hypertension, paroxysmal atrial fibrillation, recurrent sinusitis and rhinitis. He is tired all the time.. He occasionally awakens from sleep feeling short of breath. He occasionally wakes at night with heartburn, belching or coughing.??He occasionally snores, occasionally snores loudly enough that others complain. He frequently has trouble sleeping when he has a cold. He occasionally wakes up gasping for breath during the night. He occasionally has breathing problems at night. He rarely sweats excessively at night. He rarely notices his heart pounding or beating irregularly during the night. He frequently falls asleep during the day. He rarely falls asleep involuntarily, never falls asleep while driving. He never experiences loss of muscle tone with strong emotion. He occasionally has daytime difficulty at work due to excessive sleepiness. He never feels paralyzed on waking or falling asleep. He occasionally experiences vivid dreams upon waking or falling asleep. He never feels afraid of going to sleep. He occasionally has nightmares. He occasionally recalls his dreams. He frequently has thoughts racing through his mind. He never feels sad or depressed. He rarely feels anxiety. He rarely notices parts of his body jerk. He never kicks during the night. He occasionally feels crawling or aching feelings in his legs. He frequently feels leg pain at night. He never has morning jaw pain, rarely grinds his teeth at night. He frequently feels bothered by pain during the day, frequently awakened by pain during the night. He [place] wakes up feeling stiff in the morning, and he frequently wakes feeling sore or achy. He frequently awakens with pain in his neck, spine, or joints. Normal bedtime is 8:00 p.m., falling asleep relatively quickly, waking between 4 and 6 times at night, tossing and turning. Wake time is between 4:30 a.m. and 5:00 a.m.. On weekends, bedtime is later, between 9:30 p.m. and 10:00 p.m., wake time is between 5:30 a.m. and 6:00 a.m.. He typically gets between 4 and 5 hours of sleep per night. He takes naps in the afternoon or evening, however a short nap lasting 10-15 minutes is not refreshing. He is usually drowsy for quite a while after waking. Habits:??Tobacco: Former smoker, quit 18 years ago Caffeine: 2 drinks 12 oz per week Alcohol:2-4 per week Recreational substances: none PMFSH Past Medical History Medical History Acute recurrent maxillary sinusitis Cellulitis Chronic sinusitis Veda bullosa Excessive cerumen in right ear canal Foot pain, bilateral HLD (hyperlipidemia) Hypertension, essential Nasal crusting Nasal turbinate hypertrophy JOSE L (obstructive sleep apnea) Osteopenia PAF (paroxysmal atrial fibrillation) Post-operative pain Rhinitis medicamentosa Screening for colon cancer Sinusitis Tarsal tunnel syndrome of both lower extremities Visit for suture removal Vitamin D deficiency Family History Family History Father Hypertension Malignant neoplasm of prostate Sibling Hypertension Carcinoma of colon Family history of elevated blood lipids Mother Carcinoma of colon Other Family history of coronary artery disease Social History Social History Smoking status: Former smoker Smoking end date: 08/06/05 Additional smoking assessment comments: 1 pack a week x12 years Alcohol intake: current Drinks per week: 3 Alcohol use details: socially Substance use: never Do You Feel Safe in your Home?: Yes Lack of Transportation: No Lack of Food: Never True Current Housing: I Have Housing Concerned About Future Housing: No Difficulty Paying Gas/Electric Bills: No Difficulty Paying for Meds: No Currently Unemployed: No Education: Trade/Vocational Certificate Difficulty w/ Childcare or Family Care: No Living arrangements: with family Spiritual care concerns: No Medications Home Medications Medication Instructions Recorded Confirmed Type multivitamin 1 cap PO DAILY 12/29/22 04/11/24 History cholecalciferol (vitamin D3) 50 100 mcg PO DAILY #180 caps 07/06/23 04/11/24 Rx mcg (2,000 unit) capsule fluticasone propionate 50 1 spray intranasal BID #48 grams 10/27/23 04/11/24 Rx mcg/actuation nasal spray,suspension (Flonase Allergy Relief) vitamin B12 2,500 mcg-folic acid tablet PO 02/09/24 04/11/24 History 400 mcg disintegrating tablet rosuvastatin 10 mg tablet See Rx Instructions .Route 03/21/24 04/11/24 Rx .COMPLEX #90 tabs tramadol 50 mg tablet 50 mg PO Q6H PRN pain #30 tabs 04/11/24 04/11/24 Rx Sleep Procedure A full night polysomnogram using the MedicaMetrix multi-channel system recorded the standard physiologic parameters including EEG, EOG, submentalis EMG, anterior tibialis EMG, EKG, body position, nasal and oral airflow using nasal pressure sensor and thermistor. Respiratory parameters of chest and abdominal movements were recorded with Respiratory Inductance Plethysmography belts. Oxygen saturation was recorded by pulse oximetry. Video monitoring was also performed. Sleep stages, periodic limb movements, and EEG arousals were scored in 30 second epochs according to the criteria of the AASM Scoring Manual. The Apnea-Hypopnea Index was calculated using CMS guidelines for definition of hypopnea while scoring respiratory events. The computer crashed at 4:18 a.m., had to be restarted. The on site wastewater systems technician also when in the patient's room to restart the amplifier in order to have video recording after the computer was restarted. The patient did not meet criteria early enough in the night to proceed with a split night study so this was conducted as a basic polysomnogram. Sleep Architecture The total recording time was 544.2 minutes. The total sleep time was 351.5 minutes. Sleep latency was 15.9 minutes. REM latency was 93.0 minutes. Sleep efficiency was 64.6%. The patient had 76 awakenings for an awakening index of 13.0. Wake after sleep onset time was 176.5 minutes. The patient spent 88.0 minutes, 25.0% of total sleep time in Stage N1. The patient spent 201.0 minutes, 57.2% in Stage N2. The patient spent no time in Stage N3. The patient spent 62.5 minutes, 17.8% in Stage REM sleep. Respiratory Analysis The patient had 19 hypopneas, 10 obstructive apneas, no mixed apneas, and 1 central apnea for an overall Apnea Hypopnea Index of 5.1. The REM Apnea Hypopnea Index was 5.8. The NREM Apnea Hypopnea Index was 5.0. The patient had a Central Apnea Hypopnea Index of 0.2. There were 30 Respiratory Effort Related Arousals resulting in a RERA index of 5.1 events per hour. The Respiratory Disturbance Index is 10.2 events per hour. There was no evidence of Valente-Roach Respirations.The supine apnea hypopnea index is 46.8, and the non-supine apnea-hypopnea index is 1.3. The supine apnea-hypopnea index is 46.8, the nonsupine apnea-hypopnea index is 1.3. There was a strong positional component. The patient had very little supine sleep during this study. He had frequent position changes, tossing and turning with little supine sleep so this may have under estimated the severity of his apnea. The frequent movement probably due to pain in his legs is contributing to his excessive daytime sleepiness. Arousals There were 222 total arousals for an arousal index of 37.9. There were 81 spontaneous arousals for an index of 13.8. There were 42 arousals due to respiratory events for an index of 7.2. There were 66 arousals due to periodic limb movements for an index of 11.3. There were 33 arousals due to isolated limb movements for an index of 5.6. Periodic Limb Movements The patient had 45 isolated limb movements with an index of 7.7. The patient had 94 periodic limb movements with an index of 16.0. Patient had a total of 139 limb movements with a total limb movement index of 23.7. Oximetry Data The patient had an average oxygen saturation of 91.8% in sleep with a minimum oxygen saturation of 87.0% and a maximum oxygen saturation of 96.0%. The patient had 24 oxygen desaturations that were 4% or greater resulting in an Oxygen Desaturation Index of 4.3. The patient spent 3.5 minutes, 0.6% of total sleep time with an oxygen saturation below 88%. Snoring Profile Snoring was mild and intermittent. Cardiac Profile EKG showed normal sinus rhythm with an average pulse rate of 63.7 bpm with a minimum pulse of rate of 55 bpm and a maximum pulse rate of 95 bpm. No arrhythmias noted. EEG Profile Unremarkable, no evidence of seizures. Assessment and Plan Assessment and Plan (1) JOSE L (obstructive sleep apnea): Code(s): G47.33 - Obstructive sleep apnea (adult) (pediatric) Status: Acute Assessment and Plan: This basic nocturnal polysomnogram on 05/03/2024 shows mild obstructive sleep apnea, the overall apnea-hypopnea index is 5.1 with desaturation 87% and mild snoring. He did not qualify for split night study due to lack of qualifying events early enough in the night. He has medical comorbidities including hypertension which allow him to be treated for mild obstructive sleep apnea. I recommend that this patient be prescribed Resmed AirSense 11 AutoPAP 5-15 cm H2O, CPAP mask/filters/tubing and humidifier chamber. This should be used with all episodes of sleep. Compliance should be reviewed within 31-90 days of starting therapy for usage greater than 4 hours per night greater than 70% of the nights. The patient should be asked about symptoms such as excessive daytime sleepiness, quality of sleep, decreased nocturia, increased mental functioning such as memory, mood, and concentration. If he does not respond to APAP, he should have a CPAP titration in the sleep lab with a sleep aid to use, if needed, to get to sleep and stay asleep. He should not nap on the day of the CPAP titration. The supine apnea-hypopnea index is 46.8, the nonsupine apnea-hypopnea index is 1.3. There was a strong positional component. The patient had very little supine sleep during this study. He had frequent position changes, tossing and turning with little supine sleep so this may have under estimated the severity of his apnea. The frequent movement probably due to pain in his legs is contributing to his excessive daytime sleepiness. He had very little supine sleep and no supine REM on this test. He had fragmented sleep during the night. He had leg movements with a periodic limb movement arousal index of 11.3, in the normal range, see discussion below. His leg pain and movements may be contributing to his excessive daytime sleepiness. Treatment may improve his daytime functioning. (2) Restless legs syndrome (RLS): Code(s): G25.81 - Restless legs syndrome Status: Acute Assessment and Plan: His limb movements index was 23.7, and his periodic limb movement arousal index is 11.3, within the normal range. He has occasional uncomfortable feeling in his legs at night without complaints of kicking. He frequently has leg pain at night and in the day. He meets criteria for restless legs syndrome. Ferritin level is indicated to exclude iron deficiency anemia as a contributing factor. Ferritin should be 75 ng/mL or greater. If ferritin is below this, iron supplementation should be given to achieve ferritin of 75 ng/mL. There are nonpharmacologic methods to treat limb movements including daily exercise, stretching calf muscles before bed, avoiding excessive amounts of caffeine and alcohol, vitamin B supplementation, magnesium lotion massaged into legs before bed, and use of a weighted blanket. Pharmacologic therapy is very effective for restless legs syndrome and limb movements during sleep and may include [id number] voltage-gated calcium channel ligands such as gabapentin which is preferable to dopaminergic agents which can have augmentation. Other treatments can include opioids and benzodiazepines. Data The data obtained during this sleep study is adequate for interpretation. Certification This sleep study has been reviewed by a board certified sleep medicine physician.
[2024-05-24 11:51] VITALS: BMI 25.8
== END 2024-05-04 06:42 | disposition home or self-care (01) ==
LOC: ANHCSM 07:59
PROVIDERS: PCP Emergency Medicine; Visit Provider Nurse Practitioner Family
DX: G47.33 Obstructive sleep apnea (adult) (pediatric) (principal); G47.10 Hypersomnia, unspecified; G25.81 Restless legs syndrome
CPT/HCPCS: 95810

== ENCOUNTER 2024-05-26 10:46 | Outpatient (CLI) | payer BC, SELFPAY | END 2024-05-26 10:47 | disposition home or self-care (01) | PROVIDERS: PCP Emergency Medicine; Visit Provider Nurse Practitioner Family | DX: G25.81 Restless legs syndrome (principal); M25.50 Pain in unspecified joint | CPT/HCPCS: 36415; 82728 ==

== ENCOUNTER 2024-08-18 00:40 | Day surgery (SDC) | payer BC, SELFPAY ==
[2024-08-09 09:50] VITALS: BMI 26.3
--- OUTSIDE RECORDS SUMMARY | 2024-08-18 00:44 | XMS_ITS | Patient Health Summary ---
Author Organization [facility] Address [address] [place] [address] Care Team Providers Care Mental Health Case Manager Name Role Phone Cuco Christina MD Primary Care Provider Note from [facility],non-owned Affiliates and Associated Physician Practices is amultiple site organization consisting of ambulatory clinics and hospital sitesin [place], [place], [place] and [place]. This disclosure is being madepursuant to the Care Everywhere program and may not contain all information available regarding this patient. Last updated 18.[facility] Allergies * Amoxicillin(Itching,Rash) -Medium Criticality * Sulfa Drugs(Itching,Rash) -Medium Criticality Medications * Be aware that medications may not be up to date on this document. Alwaysverify current medications with the patient. * Rosuvastatin Calcium 10 MG CPSP(Started 01/31/2024) * Cyanocobalamin (B-12) 100 MCG * Vitamin D3 (Cholecalciferol) 50 MCG (1999 UT) capsule(Started 06/09/2023) Take 2 (two) capsules by mouth once daily * Bioflavonoid Products (Bioflex) TABS Take by mouth once daily * multivitamin daily tablet Take 1 (one) tablet by mouth daily with food Social History Tobacco Use Types Packs/Day Years Used Date Smoking Tobacco: Never Smokeless Tobacco: Never Tobacco Cessation:Counseling Given: No Sex and Gender Information Value Date Recorded Sex Assigned at Not on file Gender Identity Not on file Sexual Orientation Not on file Last Filed Vital Signs Vital Sign Reading Time Taken Comments Blood Pressure 150/96 02/07/2024 8:31 AM CDT Pulse 75 02/07/2024 8:31 AM CDT Temperature 36.8 C (98.3 F) 02/07/2024 8:31 AM CDT Respiratory Rate - - Oxygen Saturation 93% 02/07/2024 8:31 AM CDT Inhaled Oxygen Concentration - - Weight 75.8 kg (167 lb) 02/07/2024 8:31 AM CDT Height 170.2 cm (5' 7 ) 02/07/2024 8:31 AM CDT Body Mass Index 26.16 02/07/2024 8:31 AM CDT Procedures * IMAGING/RADIOLOGY/XRAY RESULTS ORDER(Performed 12/19/2023) * DERMATOPATHOLOGY(Performed 02/29/2012) Results * IMAGING RADIOLOGY XRAY RESULTS ORDER (12/19/2023) Anatomical Region Laterality Modality Other 12/19/2023 Narrative 12/19/2023 Ordered by an unspecified provider. Scanned Document IMAGING * PATHOLOGY TISSUE FOR DERMATOLOGY (02/29/2012 12:00 AM CDT) Result CASE: [id number] PATIENT: REAL Loza PATHOLOGIC DIAGNOSIS: Chest: BASAL CELL CARCINOMA, NODULAR TYPE NOT PRESENT AT SAMPLED MARGIN DERMAL SCAR CLINICAL DATA: Changing, enlarging, suspicious. GROSS DESCRIPTION: Received is one formalin filled container labeled with the patient's name and designated chest. The specimen consists of a [id number] piece of skin. The margin is inked green. The specimen is bisected lengthwise and submitted in 1 cassette. Jar 0. MICROSCOPIC DESCRIPTION: Within the dermis there are aggregates of basaloid cells with a high nuclear to cytoplasmic ratio and peripheral palisading. This lesion is not present at the sampled margin of the specimen. There are fibroblasts and collagen bundles oriented parallel to the skin surface with elongated blood vessels, some of which are oriented perpendicular to the skin surface. Final Diagnosis performed by Tiara Maki M.D. Electronically signed 03/02/2012 5:43:11PM [facility] DERMATOLOGY LAB Comment: Performed at: Dermatopathology Laboratory [facility] Department of Dermatology [address] [place] [address], [address] [place] [address] Phone number: [phone] Toll Free: [phone] FAX: [phone] 02/29/2012 03/01/2012 Jackson Fung MD LAB - PATHOLOGY/[facility] ORDER[facility] DERMATOLOGY LAB [address] [facility]. 5th Floor Lab [address] [phone] Care Teams Mental Health Case Manager Relationship Specialty Start Date End Date Cuco Christina MD [address] [facility] [address] [place] [address] PCP - General 05/08/19
--- OUTSIDE RECORDS SUMMARY | 2024-08-18 00:44 | XMS_ITS | Referral Summary ---
Author Organization [facility] Address [address] [place] [address] Care Team Providers Care [employer] Name Role Phone Cuco Christina MD Primary Care Provide r Allergies Active Allergy Reactions Criticality Noted Date Comments Amoxicillin Rash Medium 12/25/2022 Sulfa (Sulfonamide Antibiotics) Rash Medium Medications fenofibrate nanocrystallized (TRICOR) 48 mg tabletIndications:hy perlipidemia Take 1 tablet (48 mg total) by mouth every morning 08/31/19 23 Active fluticasone propionate (FLONASE) 50 mcg/actuation nasal sprayIndications:All ergic Rhinitis Administer 1 spray into each nostril daily as needed for rhinitis or allergies 09/01/19 23 Active Active Problems Problem Noted Date Diagnosed Date Tarsal tunnel syndrome of left side 01/21/2023 Hyperlipidemia 04/08/2011 Benign paroxysmal positional vertigo 04/08/2011 Immunizations Name Administration Dates Next Due Tdap 05/26/2013 ZOSTER LIVE 08/02/2017 Social History Tobacco Use Types Packs/Day Years Used Date Smoking Tobacco: Former Cigarettes Q uit: 2006 Smokeless Tobacco: Never Tobacco Cessation:Counseling Given: Not Answered AUDIT-C Answer Date Recorded Q1: How often do you have a drink containing alc ohol? 2-4 times a month 03/02/2023 Q2: How many drinks containi ng alcohol do you have on a typical day when you are drinking? 1 or 2 03/02/2023 Q3: How often do you have si x or more drinks on one occasion? 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 Gender Identity Not on file Sexual Orientation Not on file Last Filed Vital Signs Vital Sign Reading Time Taken Comments Blood Pressure - - Pulse - - Temperature - - Respiratory Rate - - Oxygen Saturation - - Inhaled Oxygen Concentration - - Weight 72.6 kg (160 lb) 03/02/2023 3:10 PM CDT Height 170.2 cm (5' 7 ) 03/02/2023 3:10 PM CDT Body Mass Index 25.06 03/02/2023 3:10 PM CDT Plan of Treatment Not on file Insurance Mamba OOS Mamba OOS Care Teams [employer] Relationship Specialty Start Date End Date Cuco Christina MD [address] [place] [address] PCP - General Emergency Medicine 08/24/22
--- OUTSIDE RECORDS SUMMARY | 2024-08-18 00:45 | XMS_ITS | Referral Summary ---
Author Organization [facility] Address [address] [place] [address] Care Team Providers Care Sole Splitter Name Role Phone Cuco Christina MD Primary Care Provider [phone] Source Comments [facility],non-owned Affiliates and Associated Physician Practices is amultiple site organization consisting of ambulatory clinics and hospital sitesin [place], [place], [place] and [place]. This disclosure is being madepursuant to the Care Everywhere program and may not contain all information available regarding this patient. Last updated 18.[facility] Allergies Active Allergy Reactions Criticality Noted Date Comments Amoxicillin Itching,Rash Medium 12/25/2022 Sulfa Drugs Itching,Rash Medium 02/07/2024 Medications * Be aware that medications may not be up to date on this document. Alwaysverify current medications with the patient. Medication Sig Dispensed Refills Start Date End Date Status Rosuvastatin Calcium 10 MG CPSP 01/31/2024 Active Cyanocobalamin (B-12) 100 MCG Active Vitamin D3 (Cholecalciferol) 50 MCG (1999) capsule Take 2 (two) capsules by mouth once daily 06/09/2023 Active Bioflavonoid Products (Bioflex) TABS Take by mouth once daily Active multivitamin daily tablet Take 1 (one) tablet by mouth daily with food Active Social History Tobacco Use Types Packs/Day Years [...] Mass Index 26.16 02/07/2024 8:31 AM CDT Plan of Treatment Not on file Care Teams Sole Splitter Relationship Specialty Start Date End Date Cuco Christina MD [address] [place] [address] [address] [place] [address] PCP - General 05/08/19
--- OUTSIDE RECORDS SUMMARY | 2024-08-18 00:45 | XMS_ITS | Clinical Summary ---
Author Organization [facility] Address [address] [place] [address] Care Team Providers Care Brine Purifier Name Role Phone Cuco Christina MD Primary [...] Next Due Tdap 05/26/2013 ZOSTER LIVE 08/02/2017 Surgical History Surgery Date Site/Laterality Comments NOSE SURGERY 07/05/2022 - 07/04/2023 FOOT SURGERY 07/05/2013 - 07/04/2014 Bilateral and 2020; tarsal tunnel Medical History Medical History Date Comments ADHD (attention deficit hyperactivity disorder) Anxiety Depression Migraines Family History Medical History Relation Name Comments Cancer Other Cancer - (Added by TW Conv) Hypertension Other Hypertension - (Added by TW Conv) Relation Name Status Comments Other Social History Tobacco Use Types Packs/Day Years [...] on file 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 Gender Identity Not on file Sexual Orientation Not on file Obstetrics History Last Filed Vital Signs Vital Sign Reading Time Taken Comments Blood Pressure - - Pulse - - Temperature - - Respiratory Rate - - Oxygen Saturation - - Inhaled Oxygen Concentration - - Weight 72.6 kg (160 lb) 03/02/2023 3:10 PM CDT Height 170.2 cm (5' 7 ) 03/02/2023 3:10 PM CDT Body Mass Index 25.06 03/02/2023 3:10 PM CDT Plan of Treatment Health Maintenance Due Date Last Done Comments Colon Cancer Screening-Colonoscopy 1964 Depression Screening 1965 Hepatitis C Screening 1964 Prostate Cancer Screening-PSA 1964 Hepatitis B Screening 1982 Regular Well Visit/Exam 18-64 1982 Zoster Vaccine (2 of 3) 09/27/2017 08/02/2017 DTaP/Tdap/Td Vaccine (2 - Td or Tdap) 05/26/2023 05/26/2013 Influenza Vaccine (#1) 2024 Pneumococcal vaccine <65 Aged Out No longer eligible based on patient's age to complete this topic Insurance Combined Effort OOS Combined Effort OOS Care Teams Brine Purifier Relationship Specialty Start Date End Date Cuco Christina MD [address] [place], [place] [id number] PCP - General Emergency Medicine 08/24/22
--- OUTSIDE RECORDS SUMMARY | 2024-08-18 00:45 | XMS_ITS | Continuity of Care Document ---
Author Organization [facility] Address [address] [place] [address] [place] [address] Phone Care Team Providers Care Tractor Driver Name Role Phone Baptiste OD, Sigifredo Unavailable Unavailable Procedures Procedure Date Office/outpatient Visit, Est Office/outpatient Visit, Est Remove Foreign Body From Eye Advance Directives Directive Yes / No Effective Date File Name No Information Encounters Encounter Description Practice Location Reason(s) For Visit Diagnoses Date Provider Providers Copied on Encounter Office/outpat ient Visit, [facility], [address] [place] [address] [address], [place], [place], [id number], tel:[phone] [facility] [place] No Information Oct-2 8-200 9 Baptiste OD Sigifredo. [address] [facility] , [address], [place], [place], [facility], . tel:[phone] Office/outpat ient Visit, [facility], [address] [place] [address] [address], [place], [place], [id number], [place] tel:[phone] [facility] [place] No Information Oct-2 1-200 9 Baptiste OD Sigifredo. [address] [facility] [address], [address], [place], [address], [place]. tel:[phone] [facility], [address] [place] [address] [address], [place], [place], [id number], [place] tel:[phone] [facility] No Information Oct-1 4-200 9 Baptiste OD Sigifredo. [address] , [address], [place], [address], [place]. tel:[phone] Referring Provider: Sigifredo Miller, [address] [facility] [address], [place], [address]. tel:[phone] Family History Family Member Type Diagnosis Age At Onset No Information Payers Payer name Insurance type Covered republican ID Authorewa calderon(s) SpeedDate [id number] Social History Type Description Quantity Date Captured Comments Sex Male Smoking Status No Information Chief Complaint And Reason For Visit No Information Reason For Referral Reason For Referral No Information History Of Present Illness Encounter Date Complaint History Of Prese nt Illness No Information Functional Status Date Functional Assessmen t No Information Instructions Date Instruction Additional Infor mation No Information Assessments Type Assessment Date No Information Patient Care Teams Name Effective Dates (start - stop) Status Members No Information
--- OUTSIDE RECORDS SUMMARY | 2024-08-18 00:45 | XMS_ITS | Data Portability ---
Author Organization [facility] [employer], Main Office Address [address] [place] [address] Care Team Providers Care Hassock Maker Name Role Phone FLAKO RED Primary Care Provider FLAKO RED Referring Provider Assessment Encounter Date Assessment Date Assessment LastModified by Organization Details LastModified Time 11/01/2023 11/01/2023 This note is dictated and transcribed by [employer]. Router Tender variances may occur. Despite proofreading, typographical errors may occur. Occasional wrong-word or '[id number]' substitutions may have occurred due to the inherent limitations of voice recording. Read the chart carefully and recognize, using context, where substitutions have occurred. Not available 11/02/2023 12:35:33 Plan of Treatment Reminders Order Date Submit Date Provider Last Modified By Organization Details Last Modified Time Details Appointments None recorded. Lab None recorded. Referral pain management referral 2023 024 [email or web address] [facility], [address] [facility], [facility] [address], [place], [address], 08:34:01 Procedures None recorded. Surgeries None recorded. Imaging None recorded. Medication Orders lidocaine 5 % topical patch 2023 024 [id number], [address] [place], [address], 17:36:33 Patient TargetsNo targets recorded. Patient Instructions Encounter Date Encounter Id Patient Instructions Last Modified By Organization Details Last Modified Time 11/01/2023 [id number] learning about peripheral neuropathy Not available 11/01/2023 17:32:25 learning about managing chronic pain Not available 11/01/2023 17:32:25 Reason for Referral Pain Management Referral for Neuropathy Referring Physician: Catarino Garcia, Podiatric Surgery, Encounter Date: 11/01/2023 Problems Name Problem SNOMED Code Status Onset Date Resolution Date Notes Provider Name and Address Organization Details Recorded Time Neuralgia 69876658 Active 2023 Catarino Garcia DPM [address], [place], [address], [employer] 17:31:05 Neuropathy 623152829 Active 2023 Catarino Garcia DPM [address], [address], [place], [address], [employer] 17:31:19 Pain in both feet 9932343206675 9102 Active 2023 Catarino Garcia DPM [address], [address], [place], [address], [employer] 17:36:27 Problem Notes None recorded. Procedures Surgical History Date Name Laterality Status Provider Name and Address Organization Details Recorded Time Blank Procedure Note completed Catarino Garcia DPM [address], [place], [address], [employer] 11/02/2023 12:33:40 Imaging Results None recorded. Procedure Notes None recorded. Medical Equipment None Reported. Allergies Allergen ID Allergen Name Allergen Category Reaction Reaction Severity Criticality Documentation Date Start Date Code Code System Note Provider Name and Address Organization Details Recorded Time 33498 Substance with sulfonami de structure and antibacte rial mechanism of action (substanc e) medicatio n rash severe Not available 11/01/2023 24374 8003 SNOMED Trang Cristine [employer] 16:35:45 51440 amoxicill in medicatio n rash severe Not available 11/01/2023 723 RxNorm Trang Colunga [facility], [employer] 16:36:18 Medications Name Sig Start Date Stop Date Status Note LastModified by Organization Details LastModified Time doxycycline hyclate 100 mg capsule TAKE 1 CAPSULE BY MOUTH DAILY 10/31 completed Not Available Not Available Not Available azithromyci n 250 mg tablet TAKE 2 TABLETS BY MOUTH TODAY, THEN TAKE 1 TABLET DAILY FOR 4 DAYS DIRECTED 10/31 completed Not Available Not Available Not Available prednisone 20 mg tablet TAKE 2 TABLETS BY MOUTH ONCE DAILY FOR 5 DAYS 10/31 completed Not Available Not Available Not Available simvastatin 10 mg tablet TAKE 1 TABLET BY MOUTH EVERY DAY 10/31 completed Not Available Not Available Not Available prednisone 5 mg tablet TAKE 1 TABLET BY MOUTH DAILY IN THE MORNING 10/31 completed Not Available Not Available Not Available prednisolon e acetate 1 % eye drops,suspe nsion INSTILL 1 DROP INTO LEFT EYE TWICE A DAY SHAKE WELL 10/31 completed Not Available Not Available Not Available ciprofloxac in 0.3 % eye drops PUT 1-2 DRPS IN AFFECTED EYE(S) EVERY 2HR UP TO 8 TIMES/DAY X2DAYS THEN 4 TIMES/DAY X5DAYS 10/31 completed Not Available Not Available Not Available erythromyci n 5 mg/gram (0.5 %) eye ointment APPLY A SMALL AMOUNT INTO LEFT EYE EVERY NIGHT 10/31 completed Not Available Not Available Not Available lidocaine 5 % topical patch APPLY 1 PATCH BY TOPICAL ROUTE ONCE DAILY (MAY WEAR UP TO 12 HOURS.) 2023 active Not Available Not Available Not Avai lable mupirocin 2 % topical ointment USE DIRECTED BY DR. WALKER IN OFFICE 10/31 completed Not Available Not Available Not Available fluticasone propionate 50 mcg/actuati on nasal spray,suspe nsion INSTILL 1 SPRAY INTRANASA LLY TWICE A DAY ADMINISTE R INTO EACH NOSTRIL active Not Available Not Available No t Available testosteron e 1 % (50 mg/5 gram) transdermal gel packet APPLY 1 PACKET ONTO THE SKIN DAILY 10/31 completed Not Available Not Available Not Available oxycodone 5 mg tablet TAKE 1 TABLET BY MOUTH EVERY 12 HOURS NEEDED FOR PAIN 10/31 completed Not Available Not Available Not Available cyclobenzap rine 5 mg tablet 5 MG ORALLY TWICE A DAY 10/31 completed Not Available Not Available Not Available moxifloxaci n 0.5 % eye drops INSTILL 1 DROP INTO LEFT EYE 4 TIMES A DAY 10/31 completed Not Available Not Available Not Available rosuvastati n 10 mg tablet TAKE 1 TABLET BY MOUTH EVERY DAY active Not Available Not Available No t Available fenofibrate nanocrystal lized 48 mg tablet TAKE 1 TABLET BY MOUTH EVERY DAY 10/31 completed Not Available Not Available Not Available cholecalcif jaqueline (vitamin D3) 50 mcg (2,000 unit) capsule TAKE 1 SOFTGEL (50 MCG OR 2,000 UNITS) ORALLY DAILY 10/31 completed Not Available Not Available Not Available Vitals Date Recorded Heart rate Respiratory rate Body temperature Oxygen saturation Oxygen saturation in Arterial blood by Pulse oximetry Body height Body mass index (BMI) Body weight Systolic blood pressure Diastolic blood pressure Provider Name and Address Organization Details Last Updated DateTime 81 /min 16 /min 97.4 [degF] 97 % 97 % 170.18 cm 25.8 kg/m2 91761.7 4 g 120 mm[Hg] 70 mm[Hg] Trang Colunga [facility] [employer] [facility] 16:34:49 Social History None recorded. Functional Status None recorded. Mental Status None recorded. Family History Relationship Description Onset Age of this Age Resolved Age Notes LastModified by Organization Details LastModified Time Father No current problems or disability [email or web address] Not available 16:36:55 Father Cerebrovascu lar accident [email or web address] Not available 17:40:37 Father Hypertensive disorder [email or web address] Not available 2023 17:40:49 Father Heart disease [email or web address] Not available 2023 17:41:02 Mother No current problems or disability [email or web address] Not available 16:36:55 Mother Cerebrovascu lar accident [email or web address] Not available 17:40:38 Mother Hypertensive disorder [email or web address] Not available 2023 17:40:49 Mother Heart disease [email or web address] Not available 2023 17:41:02 Medical History Condition Response ARTHRITIS Y HIGH CHOLESTEROL / HYPERLIPIDEMIA Y Past Encounters Encounter ID Performer Location Encounter Start Date Encounter Closed Date Diagnosis/Indication Diagnosis SNOMED-CT Code Diagnosis ICD10 Code Diagnosis Note [id number] Catarino Garcia DPM [facility] [address] [place] [address] 11/01/2023 16:26:25 11/02/2023 16:11:58 Neuralgia 63865322 M79.2 as above Neuropathy 429274118 G62 .9 educated on conditionr ecommend pain management referral for pain stimulator follow-up as needed Pain in both feet 067009 3194 2855160 M79.671 M79.672 Health Concerns Section Related Observation LastModified by Organization Detai ls LastModified Time None Recorded Concern Status LastModified by Organization Details LastModified Time None Recorded Advance Directives Directive None Recorded Payers Encounter Date Sequence Insurance Name Policy Number Policy Lozano Covered Member ID Lozano Member ID Guarantor Name 11/01/2023 1 [place] [id number] [employer] [id number] [employer] Notes Date Note Type Note Provider Name and Address Organization Details Recorded Time 11/01/2023 text/html Patient is a 58-year-old male who presents to the office with complaints of pain to bilateral feet. Patient states he has been to several machine tool builder and he is underwent several surgeries at the tarsal tunnel area due to pain and discomfort in the heel and along the Lateral aspect of his ankle. patient states that he has daily pain and it worsens when he is standing and walking. Patient states he does get some relief when he is off his feet. Patient denies any other complaints. Catarino Garcia DPM [address], [address], [place] [facility] [employer] 11/02/2023 12:36:38
--- OUTSIDE RECORDS SUMMARY | 2024-08-18 00:45 | XMS_ITS | Clinical Summary ---
Author Organization [facility] Address [address] [facility] [place] [address] Care Team Providers Care Acquisition Marketing Manager Name Role Phone Cuco Christina MD Primary Care Provider [phone] Source Comments [facility],non-owned Affiliates and Associated Physician Practices is amultiple site organization consisting of ambulatory clinics and hospital sitesin [place], [place], [place] and [place]. This disclosure is being madepursuant to the Care Everywhere program and may not contain all information available regarding this patient. Last updated 18.[facility] [employer] Allergies Active Allergy Reactions Criticality Noted Date [...] 02/07/2024 8:31 AM CDT Plan of Treatment Health Maintenance Due Date Last Done Comments COLOGUARD (AGES 45-75) - COL ON CA SCREENING 1964 COLON MONITORING 1964 COLONOSCOPY - COLON CA SCREENING 1964 CT COLONOGRAPHY - COLON CA SCREENING 1964 Colorectal Cancer Screening 1964 FIT - COLON CA SCREENING 1964 FLEX SIG - COLON CA SCREENING 1964 HIV SCREENING 1979 HEPATITIS C SCREENING 07/19/1982 DTAP/TDAP/TD VACCINES (1 - Tdap) 1983 PNEUMOCOCCAL VACCINE 50+ (1 of 1 - PCV) 2014 ZOSTER VACCINE (1 of 2) 2014 SCREENING FOR DIABETES 02/07/2024 COVID-19 VACCINE ( - 2023-2 5 season) 2024 INFLUENZA VACCINE (#1) 2024 DEPRESSION SCREENING 07/05/2024 Respiratory Syncytial Virus (RSV) Vaccine Pt: or over 60 yrs (1 - 1-dose 75+ series) 2039 HEPATITIS B VACCINE Aged Out No longe r eligible based on patient's age to complete this topic HIB VACCINE Aged Out No longer eligi ble based on patient's age to complete this topic HPV VACCINE Aged Out No longer eligi ble based on patient's age to complete this topic MENINGOCOCCAL (Group B) VACCINE Aged Out No longer eligible based on patient's age to complete this topic MENINGOCOCCAL VACCINE Aged Out No sadia harsh eligible based on patient's age to complete this topic Care Teams Acquisition Marketing Manager Relationship Specialty Start Date End Date Cuco Christina MD [address] [place] [address] [address] [place] [address] PCP - General 05/08/19
--- OUTSIDE RECORDS SUMMARY | 2024-08-18 00:45 | XMS_ITS | Clinical Summary ---
Author Organization [facility] Address [address] [place] [address] Phone Care Team Providers Care Turret Lathe Machinist Name Role Phone Unavailable Primary Care Provider Unavailabl e Social History Tobacco Use Types Packs/Day Years Used Date Smoking Tobacco: Never Assessed Sex and Gender Information Value Date Recorded Sex Assigned at Not on file Legal Sex Male 7:47 PM CDT Gender Identity Not on file Sexual Orientation Not on file Plan of Treatment Not on file
[2024-08-18] MEDS: LACTATED RINGERS 1,000 ML 150 ML IV CONT (11:52)
[2024-08-18 11:53] VITALS: BP 128/80; PULSE 88; RESP 15; TEMP 36.5; O2SAT 98; BMI 26.0
--- NOTE | 2024-08-18 12:25 | P.PNAN_ITS ---
Anes - Initial Pre Proc Eval Procedure: Operation Date: 08/18/24 13:00 Proposed Procedures p Colonoscopy - Alan Rosas MD Date/Time: 08/18/24 12:25 Surgeon: Alan Rosas MD Pre Op Diagnosis: hx of colon polyps, family hx of cancer Patient Data Age: 59 Gender: M Height: 1.7 m Weight: 75.5 kg Last Vital Signs Temp 36.5 C 08/18/24 11:53 Pulse 88 08/18/24 11:53 Resp 15 08/18/24 11:53 BP 128/80 08/18/24 11:53 Pulse Ox 98 08/18/24 11:53 O2 Del Method Room Air 08/18/24 11:53 Allergies Allergy/AdvReac Type Severity Reaction Status Date / Time Penicillins Allergy Intermediate Rash Verified 08/18/24 11:49 Sulfa (Sulfonamide Allergy Intermediate Rash Verified 08/18/24 11:49 Antibiotics) sulfanilamide Allergy Intermediate Rash Verified 08/18/24 11:49 tramadol AdvReac Intermediate Drowsy Verified 08/18/24 11:49 Home Medications ?Medication ?Instructions ?Recorded ?Confirmed ?Type multivitamin 1 cap PO DAILY 12/29/22 08/18/24 History cholecalciferol (vitamin D3) 50 100 mcg (2 x 50 mcg (2,000 unit)) 07/06/23 08/18/24 Rx mcg (2,000 unit) capsule PO DAILY #180 caps fluticasone propionate 50 1 spray intranasal BID #48 grams 10/27/23 08/18/24 Rx mcg/actuation nasal spray,suspension (Flonase Allergy Relief) vitamin B12 2,500 mcg-folic acid 1 tablet PO DAILY 02/09/24 08/18/24 History 400 mcg disintegrating tablet omega-3 fatty acids 1,000 mg 1,000 mg PO DAILY 07/14/24 08/18/24 History capsule omega 2-zyq-hdi-fish oil 60 mg-90 1 cap PO DAILY 07/18/24 08/18/24 History mg-500 mg capsule rosuvastatin 5 mg tablet 5 mg PO DAILY #90 tabs 07/18/24 08/18/24 Rx vit 1 tablet PO DAILY 07/18/24 08/18/24 History A-hbaotss-loxtjjnse-rutin-[id number] 500 mg-50 mg-25 mg-40 mg tablet (Bioflex) naproxen 500 mg tablet 500 mg PO BID PRN pain #180 tabs 07/31/24 08/09/24 Rx Patient hx anesthesia problems: none Family hx anesthesia problems: none Results Review: All pre-operative results and documents have been reviewed as part of the pre- operative evaluation. [facility] Past Medical History Medical History Osteopenia Vitamin D deficiency Hypertension, essential Excessive cerumen in right ear canal Nasal crusting Post-operative pain Chronic sinusitis Veda bullosa PAF (paroxysmal atrial fibrillation) Acute recurrent maxillary sinusitis Nasal turbinate hypertrophy Rhinitis medicamentosa Sinusitis JOSE L (obstructive sleep apnea) Screening for colon cancer Tarsal tunnel syndrome of both lower extremities Foot pain, bilateral Cellulitis Visit for suture removal HLD (hyperlipidemia) Family History Family History Father Hypertension Malignant neoplasm of prostate Sibling Hypertension Carcinoma of colon Family history of elevated blood lipids Mother Carcinoma of colon Other Family history of coronary artery disease Social History Social History Years smoked: 15 Smoking status: Former smoker Tobacco type: cigarettes Smoking end date: 08/06/05 Additional smoking assessment comments: 1 pack a week x12 years Alcohol intake: current Drinks per week: 3 Alcohol use details: socially Substance use: never Substance use type: does not use Do You Feel Safe in your Home?: Yes Lack of Transportation: No Lack of Food: Never True Current Housing: I Have Housing Concerned About Future Housing: No Difficulty Paying Gas/Electric Bills: No Difficulty Paying for Meds: No Currently Unemployed: No Education: Trade/Vocational Certificate Difficulty w/ Childcare or Family Care: No Living arrangements: with family Spiritual care concerns: No Anes - Eval Final PreProcedure Day of Procedure 08/18/24 12:25 Patient weight: overweight Heart: regular rate and rhythm Lungs: clear to auscultation Airway: Mallampati scale class II Neurological: alert and oriented Last oral intake: >/= 8 hours ASA classification: III Emergent: no Anesthetic plan: proceed Anesthesia type and monitoring: general GIVS and standard monitoring Results Review: All pre-operative results and documents have been reviewed as part of the pre- operative evaluation. Informed Consent: The patient's anesthetic plan and its attendant risks and benefits were discussed with the patient/family/POA. Questions were solicited and answers provided to the satisfaction of the patient/family/POA.
--- NOTE | 2024-08-18 13:23 | PM.IMHP ---
H&P: HPI History of Present Illness Date/Time: 08/18/24 13:23 Chief Complaint: Family history of colon cancer -history of colon polyps Narrative: This patient has family history of colorectal cancer. his mother had colorectal cancer at age 70 and his brother in his mid 40s. The patient has a history of colon polyps, his last colonoscopy was 5 years ago. Review of Systems Review of Systems: All systems reviewed & are unremarkable except as noted in HPI and below PMFSH Past Medical History Medical History Osteopenia Vitamin D deficiency Hypertension, essential Excessive cerumen in right ear canal Nasal crusting Post-operative pain Chronic sinusitis Veda bullosa PAF (paroxysmal atrial fibrillation) Acute recurrent maxillary sinusitis Nasal turbinate hypertrophy Rhinitis medicamentosa Sinusitis JOSE L (obstructive sleep apnea) Screening for colon cancer Tarsal tunnel syndrome of both lower extremities Foot pain, bilateral Cellulitis Visit for suture removal HLD (hyperlipidemia) Family History Family History Father Hypertension Malignant neoplasm of prostate Sibling Hypertension Carcinoma of colon Family history of elevated blood lipids Mother Carcinoma of colon Other Family history of coronary artery disease Social History Social History Years smoked: 15 Smoking status: Former smoker Tobacco type: cigarettes Smoking end date: 08/06/05 Additional smoking assessment comments: 1 pack a week x12 years Alcohol intake: current Drinks per week: 3 Alcohol use details: socially Substance use: never Substance use type: does not use Do You Feel Safe in your Home?: Yes Lack of Transportation: No Lack of Food: Never True Current Housing: I Have Housing Concerned About Future Housing: No Difficulty Paying Gas/Electric Bills: No Difficulty Paying for Meds: No Currently Unemployed: No Education: Trade/Vocational Certificate Difficulty w/ Childcare or Family Care: No Living arrangements: with family Spiritual care concerns: No Meds Home Medications and Allergies Home Medications ?Medication ?Instructions ?Recorded ?Confirmed ?Type multivitamin 1 cap PO DAILY 12/29/22 08/18/24 History cholecalciferol (vitamin D3) 50 100 mcg (2 x 50 mcg (2,000 unit)) 07/06/23 08/18/24 Rx mcg (2,000 unit) capsule PO DAILY #180 caps fluticasone propionate 50 1 spray intranasal BID #48 grams 10/27/23 08/18/24 Rx mcg/actuation nasal spray,suspension (Flonase Allergy Relief) vitamin B12 2,500 mcg-folic acid 1 tablet PO DAILY 02/09/24 08/18/24 History 400 mcg disintegrating tablet omega-3 fatty acids 1,000 mg 1,000 mg PO DAILY 07/14/24 08/18/24 History capsule omega 3-gzf-hag-fish oil 60 mg-90 1 cap PO DAILY 07/18/24 08/18/24 History mg-500 mg capsule rosuvastatin 5 mg tablet 5 mg PO DAILY #90 tabs 07/18/24 08/18/24 Rx vit 1 tablet PO DAILY 07/18/24 08/18/24 History O-gweywsm-inplosrlq-rutin-tycv507 500 mg-50 mg-25 mg-40 mg tablet (Bioflex) naproxen 500 mg tablet 500 mg PO BID PRN pain #180 tabs 07/31/24 08/09/24 Rx Allergies Allergy/AdvReac Type Severity Reaction Status Date / Time Penicillins Allergy Intermediate Rash Verified 08/18/24 11:49 Sulfa (Sulfonamide Allergy Intermediate Rash Verified 08/18/24 11:49 Antibiotics) sulfanilamide Allergy Intermediate Rash Verified 08/18/24 11:49 tramadol AdvReac Intermediate Drowsy Verified 08/18/24 11:49 Vital Signs Vital Signs - 24 hr 08/18/24 11:53 Temperature 97.7 F Pulse Rate 88 Respiratory Rate 15 Blood Pressure 128/80 Pulse Oximetry 98 Oxygen Delivery Room Air Exam Const: General: cooperative and healthy appearing Resp: Effort & Inspection: normal respiratory effort and able to speak in complete sentences Auscultation: clear to auscultation bilaterally Cardio: Rate: regular rate Rhythm: regular rhythm GI: Inspection: normal to inspection GI Palp: No No hepatosplenomegaly present Auscultation: normal bowel sounds Rectal Exam: deferred Skin: General skin exam: normal color Psych: Appearance: grossly normal Mental Status: mental status grossly normal Assessment and Plan Assessment and plan (1) Family history of colorectal cancer: Code(s): Z80.0 - Family history of malignant neoplasm of digestive organs Status: Acute Assessment and Plan: The patient is deemed a good candidate for the procedure. Consent signed. Will proceed.
[2024-08-18 14:04] VITALS: BP 127/77; PULSE 76; RESP 22; O2SAT 99
[2024-08-18 14:14] VITALS: BP 144/92; PULSE 70; RESP 18; O2SAT 100
[2024-08-18 14:24] VITALS: BP 145/80; PULSE 70; RESP 18; O2SAT 99
== END 2024-08-18 14:35 | disposition home or self-care (01) ==
PROVIDERS: PCP Emergency Medicine; Referring Provider Internal Medicine Gastroenterology; Visit Provider Internal Medicine Gastroenterology
PROC: 0DJD8ZZ Inspection of Lower Intestinal Tract, Via Natural or Artificial Opening Endoscopic (ICD-10-PCS; CPT 45378; principal; 2024-08-18 13:00)
DX: Z12.11 Encounter for screening for malignant neoplasm of colon (principal); D12.2 Benign neoplasm of ascending colon; D12.4 Benign neoplasm of descending colon; D12.8 Benign neoplasm of rectum; Z80.0 Family history of malignant neoplasm of digestive organs; Z87.891 Personal history of nicotine dependence
CPT/HCPCS: 45385; 45381; 88305; J2003; J2704; J7120

== ENCOUNTER 2024-11-24 10:26 | Outpatient (RCR) | payer BC, SELFPAY ==
--- NOTE | 2024-11-24 11:34 | OTOPEVDC ---
Assessment and note entered by Antonio Hammond, OTR/L, CHT Thank you for referring Real Milligan to [facility]. An evaluation has been completed. No further treatment is needed. Evaluation Information Assessment Status Evaluation Diagnosis bilateral foot pain, paroxysmal a-fib Subjective Information Patient referred to our clinic for mobility device evaluation. He comes with the diagnoses of bilateral foot pain s/p bilateral tarsal tunnel release and bilateral plantar fasciitis release ( 2014 and revision in 2020). He continues to have severe bilateral foot pain that limits his functional mobility and standing tolerance. Please refer to 12 page seating/mobility evaluation form for detials. Reported Pain Level Pain Score 8: Self Report Additional Pain Score Comments Bilateral foot pain 8/10 at rest, chronic and continuous, gets up to 10/10 at least 5 days out of the week, lowest 6/10 at times; bilateral foot pain can radiate up the shins, knees, and hips especially at night after being on his feet throughout the day Assessment OT Clinical Summary Patient referred to our clinic for a mobility evaluation. He presents with a decline in functional safety with his functional mobility and mobility related ADLs due to deficits with severe , chronic, and continuous bilateral foot pain for the last 10 years. He demonstrates the ability to safely transfer from chair/mat, he demonstrates safe and independent sitting balance, and normal UB ROM and strength. Standing balance is functional, however he is severely limited with standing tolerance due to bilateral foot pain. He demonstrates decreased functional endurance and fatigue with activity. An optimally fitted walker or cane does not alleviate his pain due to not reducing the amount he has to weight bear through his feet. A manual wheelchair is not an optimal option for this patient due to reduced functional endurance and cardiac output with activity. He is also unable to use his feet to mobilize in a manual w/c due to pain. A scooter is an optimal mobility device for this patient as he is able to transfer, has safe and functional sitting balance, and intact UB strength and ROM to operate a tiller system. Patient is willing and able to operate this equipment. This equipment will help increase patient's quality of life, reduce foot pain, and improve his independence mobility related ADLs. Plan of Care OT Services Indicated No
== END 2024-11-24 12:27 | disposition home or self-care (01) ==
LOC: ANHOT 10:26
PROVIDERS: PCP Emergency Medicine; Visit Provider Emergency Medicine
DX: Z46.89 Encounter for fitting and adjustment of other specified devices (principal); I48.0 Paroxysmal atrial fibrillation; M79.671 Pain in right foot; M79.672 Pain in left foot
CPT/HCPCS: 97167